=== PATIENT | male | born 1980 | race Caucasian/White ===

== ENCOUNTER 2020-05-11 04:55 | Emergency (ER) | payer BC ==
--- NOTE | 2020-05-11 04:58 | PDOC ---
History of Present Illness - General Chief Complaint: Lightheaded Stated Complaint: DIZZY/NAUSEA Time Seen by Provider: 05/11/20 04:57 - History of Present Illness Initial Comments: This 40-year-old man with a history of concussion last year but no other significant past medical history is brought in by ambulance after awakening with vertigo and nausea about 2 hours prior to presentation. Patient states that he was awakened by his young child and noted room spinning sensation while still in bed. He was able to ambulate but noted imbalance (patient did not fall). He also had nausea at this time without vomiting. No previous history of vertigo. No recent trauma, febrile illness. Symptoms of room spinning gradually improved while he was home but since he had some residual feeling of imbalance and nausea he called EMS was brought here. Patient denies any word recall difficulty, dysarthria, visual difficulties, facial or extremity weakness; he had no headache or other pain Last year, patient had his head against metal pole while [place] the park. He had no loss of consciousness but describes significant symptoms of concussion (lightheadedness primarily) that took some time to resolve. He was not seen by a neurologist but had been referred to concussion therapist at [facility]. Patient had febrile illness in September/October of this year; he had no diagnostic testing at this time but his PMD believes he might of had a mild case of COVID- 19 No daily medications Non-smoker/no daily alcohol or other recreational drug use No known allergies Past History - Medical History Allergies/Adverse Reactions: Allergies Allergy/AdvReac Type Severity Reaction Status Date / Time No Known Allergies Allergy Unverified 05/11/20 04:56 Home Medications: Ambulatory Orders Meclizine HCl [Antivert -] 25 mg PO TID PRN #12 tablet 05/11/20 *Physical Exam - Physical Exam GENERAL: Adult male, alert and oriented x3, in no acute distress HEAD: Normal with no signs of trauma. EYES: PERRLA, EOMI, sclera anicteric, conjunctiva clear. ENT: Ears normal, nares patent, oropharynx clear without exudates. Dry mucous membranes. NECK: Normal range of motion, supple without lymphadenopathy, JVD, or masses. No bruits LUNGS: Breath sounds equal, clear to auscultation bilaterally. No wheezes, and no crackles. HEART:Regular rate and rhythm, normal S1 and S2 without murmur, rub or gallop. ABDOMEN:.normal bowel sounds No guarding,tenderness or rebound.No masses No distention. EXTREMITIES: Normal range of motion, no edema. No clubbing or cyanosis. No erythema, or tenderness. NEUROLOGICAL: Cranial nerves II through XII grossly intact. Pupils 2 mm equal and reactive, no abnormal nystagmus present No pronator drift, [id number]/rapid alternating movements normal, extremity strength and sensation intact SKIN: Warm, Dry, normal turgor, no rashes or lesions noted. Medical Decision Making - Medical Decision Making This 40 y.o. man presents by ambulance with history of episode of vertigo with nausea lasting approximately 20 min upon awakening a few hours prior to presentation. Symptoms have largely resolved spontaneously although there is some residual mild sense of lightheadedness. PMH notable for concussion last year. Exam as noted is normal No evidence of central etiology vertigo. Meclizine 50 mg given Patient continues to feel no further sensation of vertigo and nausea has improved with patient now hungry. Patient will be discharged with prescription for meclizine 25 mg up to 3 times a day (#12) as needed for vertigo. He should return here if he has persistent severe vertigo or nausea/vomiting. He should contact his PMD and discuss today's ER visit with follow-up as arranged. He will also be given referral information for neurologist on-call (Dr. Olvera) whom he should contact if he has persistent mild symptoms of lightheadedness Discharge - Discharge Information Problems reviewed: Yes Clinical Impression/Diagnosis: Vertigo, benign paroxysmal Qualifiers: Laterality: unspecified laterality Qualified Code(s): H81.10 - Benign paroxysmal vertigo, unspecified ear Condition: Stable Disposition: HOME - Additional Discharge Information Prescriptions: Meclizine HCl [Antivert -] 25 mg PO TID PRN #12 tablet PRN Reason: Vertigo - Follow up/Referral Referrals: Maci Salazar MD [Primary Care Provider] - Wili Olvera MD [Staff Physician] - - Patient Discharge Instructions Patient Printed Discharge Instructions: Benign Paroxysmal Positional Vertigo Additional Instructions: Avoid strenuous activity/driving today Meclizine 25 mg up to 3 times a day as needed for recurrent spinning sensation Return to ER if you have severe persistent vertigo or nausea/vomiting Contact your doctor and discuss today's ER visit Followup with neurologist (Dr Olvera) as needed as discussed - Post Discharge Activity
[2020-05-11 05:02] VITALS: BP 105/69; PULSE 73; TEMP 98.1; BMI 24.3
[2020-05-11] MEDS ORDERED: MECLIZINE HCL 25 MG TABLET (FP) PO ONE (05:25)
[2020-05-11] MEDS ORDERED: MECLIZINE HCL 25 MG TABLET (FP) ONE (05:27)
== END 2020-05-11 06:24 | disposition home or self-care (01) ==
LOC: FER 04:55
DX: H81.10 Benign paroxysmal vertigo, unspecified ear (principal)
CPT/HCPCS: 99283-25